=== PATIENT | male | born 1955 | race Caucasian/White ===

== ENCOUNTER → 2016-09-21 | Outpatient (CLI) | payer BC ==
[~2016-09-21] MED LIST: ASPIRIN PO; FISH OIL 1,2001 EACH PO; LIPITOR PO; PROPYLTHIOURACIL; TOPROL XL PO
--- NOTE | ~2016-09-21 | ST ---
Unit #: [id number] #: [id number] Patient: MARCIAL MACIAS [id number] [address] [address] [id number] O MR#: [id number] NAME: MARCIAL MACIAS : 1955 SEX: M STUDY DATE/TIME: 09/21/2016 UNIT: [facility] ROOM: STUDY DESCRIPTION: Attending Physician: Greg Fuentes M.D. Referring Physician: Greg Fuentes M.D. Primary Care Physician: Lacho Robles M.D. CARDIOLOGY REPORT EXAM EKG portion of a treadmill Cardiolite stress test. REASON FOR TEST Increasing shortness of breath. FINDINGS Patient exercised on the treadmill according to Efrain protocol for a total exercise time of 7 minutes and 48 seconds. The patient's resting heart rate was 69 with a maximum heart rate of 142 which represents 88% of the maximum age-predicted heart rate. The patient's resting blood pressure was 140/94 with a maximum blood pressure of 194/100 which represents a maximum workload of 9.7 METs. The patient tolerated the activity well with no chest pain during the test. There were no sustained arrhythmias and no ectopy. There do not appear to be any changes to the ST segment during the test to indicate ischemia. Patient tolerated well with complaints of only some uhlz-ul-gwjakbhj shortness of breath toward the end of stage 3 that resolved by the end of the recovery period. Patient was unable to complete any more of the test due to shortness of breath as well as pain in the shins from bilateral esteves splints. Patient tolerated the activity well with no complications. No reversal was needed. Test was stopped due to max exertion. IMPRESSION 1. No sustained arrhythmias. 2. No ectopy noted. 3. No changes to the ST segment. 4. Patient tolerated well with no complications, only some cvpa-rw-mceevgic shortness of breath that resolved by the end of the recovery period. 5. Please correlate with Cardiolite imaging. Dictated by... JOHNY Langford TD: 09/21/2016 11:15 JOB #: [id number] Unit #: [id number] #: [id number] Patient: MARCIAL MACIAS CARDIOLOGY REPORT X CARDIOLOGY REPORT
--- NOTE | ~2016-09-21 | TH ---
Unit #: [id number] #: [id number] Patient: MARCIAL MACIAS [id number] [address] [address] [id number] O MR#: [id number] NAME: MARCIAL MACIAS. : 1955 SEX: M STUDY DATE/TIME: 09/21/2016 UNIT: [facility] ROOM: STUDY DESCRIPTION: Attending Physician: Greg Fuentes M.D. Referring Physician: Greg Fuentes M.D. Primary Care Physician: Lacho Robles M.D. CARDIOLOGY REPORT EXAM Exercise Cardiolite stress test, nuclear portion. PROCEDURE Using technetium 99m labeled Cardiolite, rest and stress SPECT images were obtained. Multiple SPECT images were obtained in various views including horizontal and vertical long axis and short axis views of the left ventricle. Images were obtained by gated SPECT method. The patient was administered 11.5 mCi of Cardiolite at rest. The patient was administered 33.7 mCi of Cardiolite at peak exercise. Total exercise time is 7 minutes and 48 seconds. On the stress images, there is normal perfusion noted. The rest images showed normal perfusion. Comparing rest and stress images, there is no stress-induced ischemia noted. The left ventricular ejection fraction is calculated to be 61%. There is no focal wall motion abnormality seen. CONCLUSION 1. No stress-induced ischemia noted. 2. The left ventricular ejection fraction is calculated to be 61%. 3. There is no focal wall motion abnormality seen. 4. Normal exercise Cardiolite stress test. 5. Technically somewhat limited study due to increased gut uptake and patient's body habitus. Clinical correlation is requested. Dictated by... Jesu Ovalles TD: 09/21/2016 17:20 JOB #: [id number] Unit #: [id number] #: [id number] Patient: MARCIAL MACIAS CARDIOLOGY REPORT X Mayuri Palmer MD <ELECTRONICALLY SIGNED> 02/06/17 1429 CARDIOLOGY REPORT
[2016-09-21 10:12] LABS: ALBUMIN SERUM 4.7 g/dL (3.5-5.0); ALKALINE PHOSPHATASE 81 U/L (32-92); ALT (SGPT) 33 U/L (10-40); AST (SGOT) 29 U/L (10-42); BILIRUBIN,TOTAL 0.6 mg/dL (0.2-2.0); BLOOD UREA NITROGEN 19 mg/dL (9-23); BUN/CREATININE RATIO 15.83; CALCIUM SERUM 9.3 mg/dL (8.4-10.2); CARBON DIOXIDE 28 mmol/L (22-31); CHLORIDE 108 mmol/L (100-111); CHOLESTEROL 181 mg/dL (0-200); CREATININE SERUM 1.2 mg/dL (0.6-1.4); GLOM FILT RATE Estimated ABOVE60 mL/min (>60); GLUCOSE FASTING 96 mg/dL (70-110); HDL CHOLESTEROL 45 mg/dL (29-75); LDL CHOLESTEROL 105 mg/dL (-130); LDL/HDL RATIO 2 RATIO (0-4); POTASSIUM 4.8 mmol/L (3.5-5.1); PROTEIN TOTAL SERUM 7.4 g/dL (6.0-8.3); SODIUM 137 mmol/L (135-145); TRIGLYCERIDES 154 mg/dL (10-160)
== END | disposition home or self-care (01) ==
LOC: CLAB 07:48
PROVIDERS: Internal Medicine Cardiovascular Disease
DX: I25.10 Atherosclerotic heart disease of native coronary artery without angina pectoris (principal); R07.9 Chest pain, unspecified; R53.83 Other fatigue; I10 Essential (primary) hypertension; E78.5 Hyperlipidemia, unspecified
CPT/HCPCS: 36415; 78452; 80053; 80061; 93017; A9500